=== PATIENT | female | born 1975 | race Hispanic/Latino ===

== ENCOUNTER → 2019-08-06 | Outpatient (CLI) | payer MEDICAID | END | disposition home or self-care (01) | LOC: SLP 20:20 | PROVIDERS: ATTEND Family Medicine | DX: G47.30 Sleep apnea, unspecified (principal); G47.10 Hypersomnia, unspecified; R06.00 Dyspnea, unspecified | CPT/HCPCS: 95810 ==

== ENCOUNTER → 2019-08-22 | Outpatient (CLI) | payer MEDICAID | END | disposition home or self-care (01) | LOC: SLP 20:44 | PROVIDERS: ATTEND Family Medicine | DX: G47.33 Obstructive sleep apnea (adult) (pediatric) (principal); G47.34 Idiopathic sleep related nonobstructive alveolar hypoventilation; R06.83 Snoring | CPT/HCPCS: 95811 ==

== ENCOUNTER 2020-04-16 19:44 | Inpatient (IN) | payer MEDICAID ==
[~2020-04-16] VITALS: Ht 147.3 cm; Wt 77.7 kg
[2020-04-16 21:01] LABS: BASOPHILS % (AUTO) 0.1 % (0.0-5.0); EOSINOPHILS % (AUTO) 0.7 % (0.0-8.0); HEMATOCRIT 41.3 % (36-48); LYMPHOCYTES % (AUTO) 10.8 % (21.0-51.0); MEAN CORPUSCULAR HGB CONC 31.7 g/dL (32.0-36.0); MEAN CORPUSCULAR VOLUME 85.2 fL (79-99); PLATELET COUNT (AUTO) 168 K/uL (130-400); RED BLOOD CELL COUNT(AUTO) 4.85 MIL/uL (4.00-5.50); RED CELL DISTRIBUTION WIDTH 13.5 % (11.0-15.5); WHITE BLOOD COUNT (AUTO) 6.7 K/uL (4.8-10.8)
[2020-04-16 21:08] LABS: INR 1.2 (0.85-1.15); PARTIAL THROMBOPLASTIN TIME 29.1 SEC (26.3-35.5); PROTHROMBIN TIME 12.9 SEC (9.6-11.6)
[2020-04-16] MEDS ORDERED: ZOSYN 3.375GM+NS 50ML 50 ML IV ONE (21:16)
[2020-04-16 23:03] LABS: ALANINE AMINOTRANSFERASE 23 U/L (12-78); ALBUMIN 2.6 g/dL (3.5-5.0); ASPARTATE AMINOTRANSFERASE 30 U/L (10-37); BILIRUBIN,TOTAL 0.5 mg/dL (0.2-1.0); CARBON DIOXIDE 20 mmol/L (21-32); CHLORIDE 107 mmol/L (101-111); CREATINE KINASE, TOTAL 22 U/L (21-232); CREATININE 2.4 mg/dL (0.5-1.5); GLOMERULAR FILTR. RATE CALC 23 mL/min (>60); GLUCOSE,RANDOM 100 mg/dL (70-105); MYOGLOBIN 112 ng/mL (10-92); POTASSIUM 4.4 mmol/L (3.5-5.1); SODIUM SERUM 143 mmol/L (136-145); TOTAL PROTEIN, SERUM 7.1 g/dL (6.0-8.3); TROPONIN I < 0.04 ng/mL (0.00-0.06); UREA NITROGEN, BLOOD 51 mg/dL (7-18)
[2020-04-16] MEDS ORDERED: LACTULOSE 20 GM/30 ML UDCUP PO PRN (23:15)
[2020-04-16] MEDS ORDERED: ACETAMINOPHEN 325 MG TAB PO PRN ×2 (23:15)
[2020-04-16] MEDS ORDERED: ERGOCALCIFEROL (VITAMIN D2) 50,000 UNIT CAPSULE PO ONE (23:15)
[2020-04-16] MEDS: ALBUTEROL INHALER 90MCG/INH IH SCH (23:30)
[2020-04-17] VITALS: BP 102/77
[2020-04-17] MEDS ORDERED: ALBUTEROL INHALER 90MCG/INH IH ONE (00:53)
[2020-04-17] MEDS ORDERED: ENOXAPARIN SODIUM 40 MG/0.4 ML SYRINGE SQ ONE ×2 (00:54→09:41)
[2020-04-17] MEDS ORDERED: METHYLPREDNISOLONE SOD SUCC 125MG/2ML VIAL ONE (00:55)
[2020-04-17] MEDS ORDERED: FAMOTIDINE/PF 20 MG/2 ML VIAL IV ONE ×3 (00:57→21:08)
[2020-04-17 01:43] LABS: APPEARANCE,URINE Clear (CLEAR); BILIRUBIN,URINE Negative (NEGATIVE); COLOR,URINE Yellow (YELLOW); GLUCOSE, URINE (UA) Negative (NEGATIVE); KETONES,URINE Trace mg/dL (NEGATIVE); LEUKOCYTE ESTERASE ,URINE Negative (NEGATIVE); NITRATE,URINE Negative (NEGATIVE); OCCULT BLOOD,URINE Large (NEGATIVE); PROTEIN,URINE POS 2+ mg/dL (NEGATIVE)
[2020-04-17 02:14] LABS: BACTERIA,URINE None Seen /HPF (None Seen); MUCUS,URINE Rare LPF (None Seen); SQUAMOUS EPITHELIAL CELL,UR Few /HPF (0-2); WBC,URINE None Seen /HPF (0-1)
[2020-04-17 04:00] VITALS: BP 103/67
[2020-04-17] MEDS: ALBUTEROL INHALER 90MCG/INH IH SCH ×2 (05:09→07:30)
[2020-04-17] MEDS ORDERED: ZOSYN 3.375GM+NS 50ML 50 ML IV ONE ×3 (05:10→21:07)
[2020-04-17] MEDS: ZOSYN 3.375GM+NS 50ML 50 ML IV SCH ×3 (05:11→21:08)
[2020-04-17 06:17] LABS: ABG HCO3 18.7 mmol/L (21.0-28.0); ABG OXYGEN SATURATION 98.8 % (95.0-99.0); ABG PCO2 32 mmHg (32-45)
[2020-04-17] MEDS: FAMOTIDINE/PF 20 MG/2 ML VIAL IV SCH ×2 (09:00→21:09)
[2020-04-17] MEDS ORDERED: ENOXAPARIN SODIUM 40 MG/0.4 ML SYRINGE SQ SCH (09:00)
[2020-04-17] MEDS: METHYLPREDNISOLONE SOD SUCC 40MG/ML 1ML IVP SCH ×3 (09:00→21:09)
[2020-04-17] MEDS: ZINC SULFATE 220 CAPSULE PO SCH (09:00)
[2020-04-17] MEDS: ASCORBIC ACID 500 MG TAB PO SCH (09:00)
[2020-04-17] MEDS ORDERED: METHYLPREDNISOLONE SOD SUCC 40MG/ML 1ML ONE ×2 (09:40→21:07)
[2020-04-17] MEDS ORDERED: ASCORBIC ACID 500 MG TAB ONE (09:41)
[2020-04-17] MEDS ORDERED: ZINC SULFATE 220 CAPSULE ONE (09:41)
[2020-04-17] MEDS ORDERED: FUROSEMIDE 10 MG/ML 4ML VIAL IV SCH (09:45)
[2020-04-17 11:05] LABS: CRP QUANTITATIVE 384.9 mg/L (0.00-9.0)
[2020-04-17 13:39] LABS: PROTEIN,URINE RANDOM 135.9 mg/dL (0-11.9)
[2020-04-17] MEDS ORDERED: FUROSEMIDE 10 MG/ML 4ML VIAL ONE (15:27)
[2020-04-17] MEDS ORDERED: ERGOCALCIFEROL (VITAMIN D2) 50,000 UNIT CAPSULE ONE (18:09)
[2020-04-17 20:00] VITALS: BP 99/55
[2020-04-18] VITALS: BP 98/55
[2020-04-18 04:00] VITALS: BP 98/85
[2020-04-18] MEDS ORDERED: ZOSYN 3.375GM+NS 50ML 50 ML IV ONE ×3 (04:56→20:57)
[2020-04-18] MEDS: ZOSYN 3.375GM+NS 50ML 50 ML IV SCH ×2 (05:50→21:00)
[2020-04-18 06:25] LABS: CRP QUANTITATIVE 285.2 mg/L (0.00-9.0)
[2020-04-18] MEDS ORDERED: ENOXAPARIN SODIUM 80 MG/0.8 ML SQ ONE (08:30)
[2020-04-18] MEDS ORDERED: ASCORBIC ACID 500 MG TAB ONE (08:31)
[2020-04-18] MEDS ORDERED: ZINC SULFATE 220 CAPSULE ONE (08:31)
[2020-04-18] MEDS ORDERED: FAMOTIDINE/PF 20 MG/2 ML VIAL IV ONE ×2 (08:32→20:58)
[2020-04-18] MEDS: ALBUTEROL INHALER 90MCG/INH IH SCH ×3 (09:09→23:30)
[2020-04-18] MEDS: ASCORBIC ACID 500 MG TAB PO SCH (09:10)
[2020-04-18] MEDS: ZINC SULFATE 220 CAPSULE PO SCH (09:11)
[2020-04-18] MEDS: FAMOTIDINE/PF 20 MG/2 ML VIAL IV SCH ×2 (09:11→21:00)
[2020-04-18] MEDS: ENOXAPARIN SODIUM 80 MG/0.8 ML SQ SCH (09:11)
[2020-04-18] MEDS ORDERED: METHYLPREDNISOLONE SOD SUCC 125MG/2ML VIAL ONE (13:03)
[2020-04-18] MEDS ORDERED: GUAIFENESIN-CODEINE 5 ML SYRUP ONE (15:00)
[2020-04-18 15:18] LABS: BASOPHILS % (AUTO) 0.1 % (0.0-5.0); HEMATOCRIT 40.1 % (36-48); LYMPHOCYTES % (AUTO) 6.4 % (21.0-51.0); MEAN CORPUSCULAR HGB CONC 30.9 g/dL (32.0-36.0); MEAN CORPUSCULAR VOLUME 87.2 fL (79-99); MONOCYTES % (AUTO) 2.8 % (3.0-13.0); NEUTROPHILS % (AUTO) 90.1 % (40.0-77.0); PLATELET COUNT (AUTO) 183 K/uL (130-400); RED CELL DISTRIBUTION WIDTH 13.5 % (11.0-15.5); WHITE BLOOD COUNT (AUTO) 8.6 K/uL (4.8-10.8)
[2020-04-18 15:31] LABS: ALBUMIN 2.5 g/dL (3.5-5.0); BILIRUBIN,TOTAL 0.3 mg/dL (0.2-1.0); CREATININE 2.7 mg/dL (0.5-1.5); TOTAL PROTEIN, SERUM 7.8 g/dL (6.0-8.3)
--- NOTE | 2020-04-18 18:30 | NUR ---
cm note call made to listed pt number no answer. call made to listed contact # and spoke to luigi castro, friend, states pt resides at home with 2 sons, she has her own room pt is independent with adls and ambulation. no provider. has a cane but does not need to use. friend states she provides transport as needed to md. no dc needs. Addendum: 04/18/20 at 1835 by ARLENE WILLIAM CM Amended: Links added.
[2020-04-18] MEDS ORDERED: PHARMACY COMMUNICATION MISC SCH (19:15)
[2020-04-18 20:10] VITALS: BP 89/59
[2020-04-18] MEDS ORDERED: MIDODRINE HCL 5 MG TABLET ONE (20:57)
[2020-04-18] MEDS ORDERED: METHYLPREDNISOLONE SOD SUCC 40MG/ML 1ML ONE (20:57)
[2020-04-18] MEDS: METHYLPREDNISOLONE SOD SUCC 40MG/ML 1ML IVP SCH (21:00)
[2020-04-18] MEDS: MIDODRINE HCL 5 MG TABLET PO SCH (21:00)
[2020-04-19 00:50] VITALS: BP 102/62
[2020-04-19] MEDS: LINEZOLID 600 MG/ISO-OSM 300 ML IV SCH ×2 (02:30→14:16)
[2020-04-19 05:00] VITALS: BP 88/52
[2020-04-19] MEDS ORDERED: ZOSYN 3.375GM+NS 50ML 50 ML IV ONE ×3 (05:09→20:30)
[2020-04-19 05:13] LABS: HEMATOCRIT 38.3 % (36-48); MEAN CORPUSCULAR HEMOGLOBIN 26.4 pg (27.0-33.0); MEAN CORPUSCULAR HGB CONC 31.6 g/dL (32.0-36.0); MEAN CORPUSCULAR VOLUME 83.4 fL (79-99); PLATELET COUNT (AUTO) 238 K/uL (130-400); RED BLOOD CELL COUNT(AUTO) 4.59 MIL/uL (4.00-5.50); RED CELL DISTRIBUTION WIDTH 13.2 % (11.0-15.5); WHITE BLOOD COUNT (AUTO) 11.7 K/uL (4.8-10.8)
[2020-04-19] MEDS: ZOSYN 3.375GM+NS 50ML 50 ML IV SCH ×3 (05:13→22:31)
[2020-04-19] MEDS: ALBUTEROL INHALER 90MCG/INH IH SCH ×6 (05:13→23:30)
[2020-04-19 05:29] LABS: BAND NEUTROPHILS % (MANUAL) 3 % (0-2); LYMPHOCYTES % (MANUAL) 7 % (22-44); MAN.DIFF COMMENT-IMPRESSION MANUAL DIFFERENTIAL; MONOCYTES % (MANUAL) 2 % (2-9); PLATELET MORPHOLOGY COMMENT ADEQUATE; SEGMENTED NEUTROPHILS % 88 % (40-70)
[2020-04-19 05:35] LABS: CREATININE 2.7 mg/dL (0.5-1.5); CRP QUANTITATIVE 144.3 mg/L (0.00-9.0); PHOSPHORUS 5.4 mg/dL (2.5-4.9); POTASSIUM 3.6 mmol/L (3.5-5.1)
[2020-04-19] MEDS: PHARMACY COMMUNICATION** REMDESIVIR ORDER MISC SCH ×3 (06:45→22:45)
[2020-04-19] MEDS ORDERED: ENOXAPARIN SODIUM 80 MG/0.8 ML SQ ONE (09:32)
[2020-04-19] MEDS ORDERED: METHYLPREDNISOLONE SOD SUCC 40MG/ML 1ML ONE (09:32)
[2020-04-19] MEDS ORDERED: ASCORBIC ACID 500 MG TAB ONE (09:33)
[2020-04-19] MEDS ORDERED: ZINC SULFATE 220 CAPSULE ONE (09:33)
[2020-04-19] MEDS ORDERED: MIDODRINE HCL 5 MG TABLET ONE ×4 (09:33→20:32)
[2020-04-19] MEDS ORDERED: FAMOTIDINE/PF 20 MG/2 ML VIAL IV ONE ×2 (09:35→20:30)
[2020-04-19] MEDS: ENOXAPARIN SODIUM 80 MG/0.8 ML SQ SCH (09:37)
[2020-04-19] MEDS: ASCORBIC ACID 500 MG TAB PO SCH (09:37)
[2020-04-19] MEDS: FAMOTIDINE/PF 20 MG/2 ML VIAL IV SCH ×2 (09:37→22:32)
[2020-04-19] MEDS: METHYLPREDNISOLONE SOD SUCC 40MG/ML 1ML IVP SCH ×2 (09:37→22:32)
[2020-04-19] MEDS: MIDODRINE HCL 5 MG TABLET PO SCH ×3 (09:39→22:33)
[2020-04-19] MEDS: ZINC SULFATE 220 CAPSULE PO SCH (09:40)
[2020-04-19] MEDS ORDERED: ACETAMINOPHEN 325 MG TAB ONE (14:15)
[2020-04-19] MEDS ORDERED: BENZONATATE 100 MG CAPSULE PO ONE (14:31)
[2020-04-19] MEDS ORDERED: BENZONATATE 100 MG CAPSULE PO PRN (14:45)
[2020-04-19] MEDS ORDERED: REMDESIVIR (INVESTIGATIONAL) 100 MG in SODIUM CHLORIDE 0.9% 250 ML IV SCH (16:45)
--- NOTE | 2020-04-19 18:26 | NUR ---
pt alert, all medications scheduled was given, pt showed no signs and symptoms of distress, ABT with no adverse reactions, pt is sat 89-91 on RA, pt was placed back on 2L NC, will continue to monitor pt
[2020-04-19 20:01] VITALS: BP 119/64
[2020-04-19] MEDS ORDERED: METHYLPREDNISOLONE SOD SUCC 125MG/2ML VIAL ONE (20:31)
[2020-04-19] MEDS ORDERED: LACTATED RINGERS 1000ML 1,000 ML IV SCH (22:15)
[2020-04-20 00:45] VITALS: BP 127/86
--- NOTE | 2020-04-20 02:20 | NUR ---
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
[2020-04-20] MEDS: LINEZOLID 600 MG/ISO-OSM 300 ML IV SCH ×2 (02:53→14:30)
[2020-04-20] MEDS: ALBUTEROL INHALER 90MCG/INH IH SCH ×6 (03:30→20:42)
[2020-04-20 04:12] VITALS: BP 109/55
[2020-04-20] MEDS ORDERED: ZOSYN 3.375GM+NS 50ML 50 ML IV ONE ×2 (04:20→13:30)
[2020-04-20] MEDS: ZOSYN 3.375GM+NS 50ML 50 ML IV SCH ×3 (04:34→20:41)
[2020-04-20] MEDS: PHARMACY COMMUNICATION** REMDESIVIR ORDER MISC SCH ×3 (06:11→20:45)
[2020-04-20 06:20] LABS: CREATINE KINASE, TOTAL 22 U/L (21-232); MYOGLOBIN 116 ng/mL (10-92); TROPONIN I < 0.04 ng/mL (0.00-0.06)
[2020-04-20] MEDS: MIDODRINE HCL 5 MG TABLET PO SCH ×3 (09:00→20:42)
[2020-04-20] MEDS: METHYLPREDNISOLONE SOD SUCC 40MG/ML 1ML IVP SCH ×2 (09:00→20:41)
[2020-04-20] MEDS: ENOXAPARIN SODIUM 80 MG/0.8 ML SQ SCH (09:00)
[2020-04-20] MEDS ORDERED: ASCORBIC ACID 500 MG TAB ONE (10:25)
[2020-04-20] MEDS ORDERED: ENOXAPARIN SODIUM 80 MG/0.8 ML SQ ONE (10:25)
[2020-04-20] MEDS ORDERED: ZINC SULFATE 220 CAPSULE ONE (10:25)
[2020-04-20] MEDS ORDERED: METHYLPREDNISOLONE SOD SUCC 40MG/ML 1ML ONE (10:25)
[2020-04-20] MEDS ORDERED: FAMOTIDINE/PF 20 MG/2 ML VIAL IV ONE (10:26)
[2020-04-20] MEDS ORDERED: MIDODRINE HCL 5 MG TABLET ONE ×2 (10:26→13:31)
[2020-04-20] MEDS ORDERED: ONDANSETRON HCL 4 MG/2 ML VIAL ONE (11:52)
--- NOTE | 2020-04-20 14:43 | NUR ---
PHONE CALL Attempted to call friend, Holli, to update on pt's status, no answer x3.
[2020-04-20 15:57] LABS: BASOPHILS % (AUTO) 0.1 % (0.0-5.0); HEMATOCRIT 38.4 % (36-48); LYMPHOCYTES % (AUTO) 4.4 % (21.0-51.0); MEAN CORPUSCULAR HGB CONC 31.8 g/dL (32.0-36.0); MONOCYTES % (AUTO) 3.4 % (3.0-13.0); NEUTROPHILS % (AUTO) 91.5 % (40.0-77.0); PLATELET COUNT (AUTO) 224 K/uL (130-400); RED BLOOD CELL COUNT(AUTO) 4.52 MIL/uL (4.00-5.50); RED CELL DISTRIBUTION WIDTH 13.2 % (11.0-15.5); WHITE BLOOD COUNT (AUTO) 8.6 K/uL (4.8-10.8)
[2020-04-20 16:04] LABS: CREATININE 1.9 mg/dL (0.5-1.5); POTASSIUM 3.7 mmol/L (3.5-5.1)
[2020-04-20 16:08] LABS: ALBUMIN 2.5 g/dL (3.5-5.0); BILIRUBIN,TOTAL 0.4 mg/dL (0.2-1.0); CRP QUANTITATIVE 58.7 mg/L (0.00-9.0)
[2020-04-20] MEDS: FAMOTIDINE/PF 20 MG/2 ML VIAL IV SCH ×2 (20:00→20:41)
[2020-04-20] MEDS: ASCORBIC ACID 500 MG TAB PO SCH (20:00)
[2020-04-20] MEDS: ZINC SULFATE 220 CAPSULE PO SCH (20:00)
[2020-04-20] MEDS ORDERED: SODIUM CHLORIDE 0.9% 500ML 500 ML IV ONE (20:29)
[2020-04-20 20:31] VITALS: BP 101/59
[2020-04-21] VITALS: BP 108/64
[2020-04-21] MEDS: LINEZOLID 600 MG/ISO-OSM 300 ML IV SCH ×2 (03:34→15:36)
[2020-04-21] MEDS: ALBUTEROL INHALER 90MCG/INH IH SCH ×6 (03:34→23:17)
[2020-04-21] MEDS: PHARMACY COMMUNICATION** REMDESIVIR ORDER MISC SCH ×3 (03:35→22:12)
[2020-04-21 04:17] VITALS: BP 123/61
[2020-04-21 06:01] LABS: LACTATE DEHYDROGENASE 227 U/L (81-234)
[2020-04-21 08:48] VITALS: BP 115/63
[2020-04-21] MEDS: METHYLPREDNISOLONE SOD SUCC 40MG/ML 1ML IVP SCH ×2 (09:53→20:10)
[2020-04-21] MEDS: ZINC SULFATE 220 CAPSULE PO SCH (09:54)
[2020-04-21] MEDS: MIDODRINE HCL 5 MG TABLET PO SCH ×3 (09:54→20:10)
[2020-04-21] MEDS: ENOXAPARIN SODIUM 80 MG/0.8 ML SQ SCH (09:55)
[2020-04-21] MEDS: FAMOTIDINE/PF 20 MG/2 ML VIAL IV SCH ×2 (09:55→20:10)
[2020-04-21] MEDS: ASCORBIC ACID 500 MG TAB PO SCH (09:55)
[2020-04-21] MEDS: ZOSYN 3.375GM+NS 50ML 50 ML IV SCH ×2 (11:55→20:10)
[2020-04-21 12:19] VITALS: BP 108/63
--- NOTE | 2020-04-21 13:07 | NUR ---
DR. Dorothea AGEE AT NURSE'S STATION UPDATED ON PT.'S STATUS. QUESTIONS ANSWERED. NO NEW ORDERS RECEIVED.
--- NOTE | 2020-04-21 14:40 | NUR ---
SPOKE WITH DR. MOSES VIA TELEMEDICINE RE:PT. STATUS AND QUESTIONS ANSWERED; VERBALIZED UNDERSTANDING AND STATES WILL PLACE ORDERS.
[2020-04-21] MEDS ORDERED: SODIUM CHLORIDE 0.9% 1000ML 1,000 ML IV SCH (14:58)
--- NOTE | 2020-04-21 15:15 | NUR ---
PHONE CALL Patient's friend, Holli Randhawa, was updated and given opportunity to ask questions.
[2020-04-21 16:29] VITALS: BP 154/75
[2020-04-21 19:30] VITALS: BP 127/56
[2020-04-22] VITALS: BP 132/59
[2020-04-22] MEDS: LINEZOLID 600 MG/ISO-OSM 300 ML IV SCH ×2 (01:31→15:02)
[2020-04-22] MEDS: ALBUTEROL INHALER 90MCG/INH IH SCH ×5 (03:27→20:39)
[2020-04-22] MEDS: PHARMACY COMMUNICATION** REMDESIVIR ORDER MISC SCH ×3 (03:27→22:45)
[2020-04-22 04:00] VITALS: BP 133/63
[2020-04-22] MEDS: ZOSYN 3.375GM+NS 50ML 50 ML IV SCH ×3 (04:53→20:38)
[2020-04-22 06:15] LABS: BASOPHILS % (AUTO) 0.1 % (0.0-5.0); HEMATOCRIT 37.9 % (36-48); LYMPHOCYTES % (AUTO) 5.1 % (21.0-51.0); MEAN CORPUSCULAR HEMOGLOBIN 26.5 pg (27.0-33.0); MEAN CORPUSCULAR HGB CONC 30.6 g/dL (32.0-36.0); MEAN CORPUSCULAR VOLUME 86.5 fL (79-99); MONOCYTES % (AUTO) 4.7 % (3.0-13.0); NEUTROPHILS % (AUTO) 89.5 % (40.0-77.0); PLATELET COUNT (AUTO) 251 K/uL (130-400); RED BLOOD CELL COUNT(AUTO) 4.38 MIL/uL (4.00-5.50); RED CELL DISTRIBUTION WIDTH 13.2 % (11.0-15.5); WHITE BLOOD COUNT (AUTO) 8.2 K/uL (4.8-10.8)
[2020-04-22 06:41] LABS: ALANINE AMINOTRANSFERASE 19 U/L (12-78); ALBUMIN 2.4 g/dL (3.5-5.0); ASPARTATE AMINOTRANSFERASE 21 U/L (10-37); BILIRUBIN,TOTAL 0.4 mg/dL (0.2-1.0); CARBON DIOXIDE 22 mmol/L (21-32); CHLORIDE 109 mmol/L (101-111); CREATININE 1.6 mg/dL (0.5-1.5); GLOMERULAR FILTR. RATE CALC 37 mL/min (>60); GLUCOSE,RANDOM 161 mg/dL (70-105); LACTATE DEHYDROGENASE 443 U/L (81-234); POTASSIUM 4.4 mmol/L (3.5-5.1); SODIUM SERUM 141 mmol/L (136-145); TOTAL PROTEIN, SERUM 6.6 g/dL (6.0-8.3); UREA NITROGEN, BLOOD 45 mg/dL (7-18)
[2020-04-22 08:15] VITALS: BP 126/69
[2020-04-22] MEDS: MIDODRINE HCL 5 MG TABLET PO SCH ×3 (09:00→20:42)
[2020-04-22] MEDS: ZINC SULFATE 220 CAPSULE PO SCH (09:25)
[2020-04-22] MEDS: METHYLPREDNISOLONE SOD SUCC 40MG/ML 1ML IVP SCH ×2 (09:25→20:38)
[2020-04-22] MEDS: ENOXAPARIN SODIUM 80 MG/0.8 ML SQ SCH (09:26)
[2020-04-22] MEDS: FAMOTIDINE/PF 20 MG/2 ML VIAL IV SCH ×2 (09:26→20:38)
[2020-04-22] MEDS: ASCORBIC ACID 500 MG TAB PO SCH (09:26)
--- NOTE | 2020-04-22 11:35 | NUR ---
UPDATED DR. AGEE ON PT. STATUS AND PULSE OXIMETRY ON 2L/NC. VERBALIZED UNDERSTANDING. NO NEW ORDERS RECEIVED AT THIS TIME.
[2020-04-22 12:23] VITALS: BP 118/63
[2020-04-22] MEDS: ONDANSETRON HCL 4 MG/2 ML VIAL IV PRN ×2 (12:38→20:57)
--- NOTE | 2020-04-22 13:03 | NUR ---
PHONE CALL Patient's sister Charu Hector was updated and given opportunity to ask questions.
--- NOTE | 2020-04-22 16:28 | NUR ---
SPOKE WITH DR. MOSES VIA TELEMEDICINE. UPDATED ON STATUS AND QUESTIONS ANSWERED.
[2020-04-22 16:32] VITALS: BP 104/61
[2020-04-22 19:55] VITALS: BP 105/51
[2020-04-23] VITALS (7 sets, daily range): BP systolic 94–113; BP diastolic 55–67
[2020-04-23] MEDS: ALBUTEROL INHALER 90MCG/INH IH SCH ×7 (01:49→21:12)
[2020-04-23] MEDS: LINEZOLID 600 MG/ISO-OSM 300 ML IV SCH ×2 (01:53→14:20)
[2020-04-23] MEDS: ZOSYN 3.375GM+NS 50ML 50 ML IV SCH ×3 (04:27→20:14)
[2020-04-23 05:01] LABS: HEMATOCRIT 36.7 % (36-48); LYMPHOCYTES % (AUTO) 5.8 % (21.0-51.0); MEAN CORPUSCULAR HEMOGLOBIN 26.8 pg (27.0-33.0); MEAN CORPUSCULAR HGB CONC 30.8 g/dL (32.0-36.0); MEAN CORPUSCULAR VOLUME 87.2 fL (79-99); MONOCYTES % (AUTO) 4.8 % (3.0-13.0); NEUTROPHILS % (AUTO) 88.7 % (40.0-77.0); PLATELET COUNT (AUTO) 213 K/uL (130-400); RED BLOOD CELL COUNT(AUTO) 4.21 MIL/uL (4.00-5.50); RED CELL DISTRIBUTION WIDTH 13.1 % (11.0-15.5); WHITE BLOOD COUNT (AUTO) 6.9 K/uL (4.8-10.8)
[2020-04-23 05:48] LABS: ALANINE AMINOTRANSFERASE 22 U/L (12-78); ALBUMIN 2.5 g/dL (3.5-5.0); ASPARTATE AMINOTRANSFERASE 15 U/L (10-37); BILIRUBIN,TOTAL 0.4 mg/dL (0.2-1.0); CARBON DIOXIDE 23 mmol/L (21-32); CHLORIDE 108 mmol/L (101-111); CREATININE 1.8 mg/dL (0.5-1.5); GLOMERULAR FILTR. RATE CALC 32 mL/min (>60); GLUCOSE,RANDOM 193 mg/dL (70-105); LACTATE DEHYDROGENASE 190 U/L (81-234); POTASSIUM 4.3 mmol/L (3.5-5.1); SODIUM SERUM 139 mmol/L (136-145); TOTAL PROTEIN, SERUM 6.3 g/dL (6.0-8.3); UREA NITROGEN, BLOOD 39 mg/dL (7-18)
[2020-04-23] MEDS: PHARMACY COMMUNICATION** REMDESIVIR ORDER MISC SCH ×3 (06:43→22:45)
[2020-04-23] MEDS: FAMOTIDINE/PF 20 MG/2 ML VIAL IV SCH ×2 (08:17→20:14)
[2020-04-23] MEDS: METHYLPREDNISOLONE SOD SUCC 40MG/ML 1ML IVP SCH ×2 (08:18→20:14)
[2020-04-23] MEDS: MIDODRINE HCL 5 MG TABLET PO SCH ×3 (08:19→20:17)
[2020-04-23] MEDS: ASCORBIC ACID 500 MG TAB PO SCH (08:19)
[2020-04-23] MEDS: ZINC SULFATE 220 CAPSULE PO SCH (08:19)
[2020-04-23] MEDS: ENOXAPARIN SODIUM 80 MG/0.8 ML SQ SCH (08:20)
--- NOTE | 2020-04-23 11:13 | NUR ---
[facility] Multiple calls made to DME agencies. [facility] currently able to fill O2 scripts for [facility] patients. Faxed patient's demographic sheet and COVID testing for needed forms to be signed for O2 referral. Nurse aware that O2 testing is needed. CM to continue to follow. CD Addendum: 04/23/20 at 1114 by ROBE ANDERSON CM Amended: Links added.
--- NOTE | 2020-04-23 12:06 | NUR ---
DR. MARY VALERIO. UPDATED ON PT. STATUS AND QUESTIONS ANSWERED. ORDERS RECEIVED.
--- NOTE | 2020-04-23 12:20 | NUR ---
RDSCREEN - LOS X 7 Pt admitted with COVID-19 infection, ARF. Renal non Dialysis diet order in place. Pt tolerating with no report of GI distress, PO intake at 75%. Pt LBM 04/21. CKD. Elevated BG. Zinc, Vitamin C supplementation in place. Symptoms improved per MD note. Pending COVID testing. Recommend 75gm CCD diet modification Recommend 60mL ProMod QD RD to continue to monitor. Please notify RD as additional nutrition concerns arise. Thank you.
--- NOTE | 2020-04-23 17:20 | NUR ---
PT. SITTING UP IN BED EATING DINNER. DENIES ANY C/O AT THIS TIME. CALL LIGHT WITHIN REACH.
[2020-04-24] MEDS: ALBUTEROL INHALER 90MCG/INH IH SCH ×5 (01:23→20:00)
[2020-04-24] MEDS: LINEZOLID 600 MG/ISO-OSM 300 ML IV SCH ×2 (01:42→13:29)
[2020-04-24 03:00] VITALS: BP 116/57
[2020-04-24 04:32] LABS: HEMATOCRIT 35.7 % (36-48); LYMPHOCYTES % (AUTO) 6.5 % (21.0-51.0); MEAN CORPUSCULAR HEMOGLOBIN 26.8 pg (27.0-33.0); MEAN CORPUSCULAR HGB CONC 31.4 g/dL (32.0-36.0); MEAN CORPUSCULAR VOLUME 85.4 fL (79-99); MONOCYTES % (AUTO) 4.1 % (3.0-13.0); NEUTROPHILS % (AUTO) 88.9 % (40.0-77.0); PLATELET COUNT (AUTO) 204 K/uL (130-400); RED BLOOD CELL COUNT(AUTO) 4.18 MIL/uL (4.00-5.50); RED CELL DISTRIBUTION WIDTH 13.1 % (11.0-15.5); WHITE BLOOD COUNT (AUTO) 8.4 K/uL (4.8-10.8)
[2020-04-24 04:49] LABS: CRP QUANTITATIVE 12.5 mg/L (0.00-9.0)
[2020-04-24] MEDS: PHARMACY COMMUNICATION** REMDESIVIR ORDER MISC SCH ×3 (06:45→22:45)
[2020-04-24] MEDS: FAMOTIDINE/PF 20 MG/2 ML VIAL IV SCH ×2 (10:05→21:21)
[2020-04-24] MEDS: ASCORBIC ACID 500 MG TAB PO SCH (10:05)
[2020-04-24] MEDS: METHYLPREDNISOLONE SOD SUCC 40MG/ML 1ML IVP SCH (10:05)
[2020-04-24] MEDS: ZINC SULFATE 220 CAPSULE PO SCH (10:05)
[2020-04-24] MEDS: ENOXAPARIN SODIUM 80 MG/0.8 ML SQ SCH (10:06)
[2020-04-24] MEDS: ZOSYN 3.375GM+NS 50ML 50 ML IV SCH ×2 (10:07→21:21)
[2020-04-24] MEDS: MIDODRINE HCL 5 MG TABLET PO SCH ×2 (10:11→14:00)
--- NOTE | 2020-04-24 11:45 | NUR ---
PT BEING TRANSFERED TO THE 4TH FLOOR ROOM 429; I SPOKE IN PERSON TO SUSANNE DOAN AND GAVE HER REPORT; THE TRANSFERING ROOM STILL NEEDS TO BE CLEANED AND WILL MOVE PT AFTER IT IS CLEANED; PT IS TEMPORARILY WAITING IN ROOM 211 TILL ROOM IS READY. I HAVE INFORMED PT OF THE TRANSFER; I HAVE ALSO SPOKEN TO CM ABOUT CHECKING WITH HER FAMILY TO MAKE SURE THEY CAN TAKE CARE OF HER HOME DUE TO HER WEAKENED STATE WITH POOR AMBULATION ABILITY;
[2020-04-24] MEDS: ONDANSETRON HCL 4 MG/2 ML VIAL IV PRN (13:28)
[2020-04-24 14:16] VITALS: BP 117/64
[2020-04-24 15:50] VITALS: BP 111/66
--- NOTE | 2020-04-24 18:21 | NUR ---
Patient received from Cecilia on 2nd floor. VSS and no complaints of pain or discomfort. Will continue to monitor for any changes
--- NOTE | 2020-04-24 20:00 | NUR ---
CLARIFICATION ORDER CALLED TO GET CLARIFICATION FOR REMDESIVIR ORDER. WAS UNABLE TO SPEAK TO ANYONE AT THIS TIME
[2020-04-24 20:33] VITALS: BP 94/52
[2020-04-24] MEDS: APIXABAN 2.5 MG TABLET PO SCH (21:22)
[2020-04-25] VITALS (8 sets, daily range): BP systolic 76–125; BP diastolic 45–64
--- NOTE | 2020-04-25 01:14 | NUR ---
ROUNDS PT RESTING WITH EYES CLOSED IN BED. OBSERVED RISE AND FALL OF CHEST. EVEN, UNLABORED RESPIRATIONS. LACEWORKER READING SB 59. NO S/S OF DISTRESS. BED LOCKED IN LOWEST POSITION, BED RAILS UP X2, CALL LIGHT WITHIN REACH ON BED.
[2020-04-25] MEDS: LINEZOLID 600 MG/ISO-OSM 300 ML IV SCH (02:02)
[2020-04-25] MEDS: ALBUTEROL INHALER 90MCG/INH IH SCH ×6 (04:00→20:00)
[2020-04-25 06:44] LABS: EOSINOPHILS % (AUTO) 1.1 % (0.0-8.0); HEMATOCRIT 36.7 % (36-48); MEAN CORPUSCULAR HGB CONC 31.9 g/dL (32.0-36.0); MEAN CORPUSCULAR VOLUME 84.8 fL (79-99); MONOCYTES % (AUTO) 7.2 % (3.0-13.0); PLATELET COUNT (AUTO) 122 K/uL (130-400); RED BLOOD CELL COUNT(AUTO) 4.33 MIL/uL (4.00-5.50); WHITE BLOOD COUNT (AUTO) 7.5 K/uL (4.8-10.8)
[2020-04-25] MEDS: PHARMACY COMMUNICATION** REMDESIVIR ORDER MISC SCH ×3 (06:45→22:45)
[2020-04-25] MEDS: ASCORBIC ACID 500 MG TAB PO SCH (07:28)
[2020-04-25] MEDS: ZINC SULFATE 220 CAPSULE PO SCH (07:28)
[2020-04-25] MEDS: FAMOTIDINE/PF 20 MG/2 ML VIAL IV SCH ×2 (07:28→20:10)
[2020-04-25] MEDS: APIXABAN 2.5 MG TABLET PO SCH ×2 (07:28→20:10)
[2020-04-25] MEDS: DEXAMETHASONE 4 MG TAB PO SCH (07:29)
[2020-04-25 07:58] LABS: CRP QUANTITATIVE 9.2 mg/L (0.00-9.0)
--- NOTE | 2020-04-25 08:00 | NUR ---
ASSESSMENT PT IS AAOX3 DENIES CP DENIES SOB DENIES NV WHILE AT REST. RESTING IN BED. AM MEDS GIVEN, CALL LIGHT WITHIN REACH.
[2020-04-25] MEDS ORDERED: MIDODRINE HCL 5 MG TABLET ONE ×2 (10:52)
[2020-04-25] MEDS ORDERED: SODIUM CHLORIDE 0.9% 1000ML 1,000 ML IV SCH (11:00)
--- NOTE | 2020-04-25 11:00 | NUR ---
SBP 70S DR LAMAR VALERIO, SAW PATIENT, ORDERS RECEIVED
[2020-04-25] MEDS: ONDANSETRON HCL 4 MG/2 ML VIAL IV PRN (11:01)
[2020-04-25] MEDS: MIDODRINE HCL 5 MG TABLET PO SCH (20:09)
--- NOTE | 2020-04-25 22:50 | NUR ---
PAIN PT C/O OF 10 OUT OF 0 PAIN TO LOWER BACK THAT RADIATES TO CHEST AREA. 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 BLANCA CALLES SAID SHE WOULD PLACE ORDER IN [facility] FOR PAIN MEDICATION.
--- NOTE | 2020-04-25 22:55 | NUR ---
PAIN INTERVENTIONS STAT EKG, LABS, VS DONE AT THIS TIME D/T CHEST PAIN- FINDINGS REPORTED BACK TO CONNIE. ADMINISTERED TYLENOL FOR PAIN ORDERED BY BLANCA ROSALES. PLACED PT ON LEFT SIDE, SUPPORTED WITH PILLOWS. PLACED WARM BACKS TO BACK. PT REPORTS THAT THE "DOLOR ES MENOS".
[2020-04-25] MEDS ORDERED: NITROGLYCERIN 0.4 MG SL TAB SL ONE (23:00)
[2020-04-26] VITALS: BP 138/68
[2020-04-26] LABS: CREATINE KINASE, TOTAL 13 U/L (21-232); MYOGLOBIN 60 ng/mL (10-92); TROPONIN I < 0.04 ng/mL (0.00-0.06)
--- NOTE | 2020-04-26 01:00 | NUR ---
ROUNDS PT RESTING WITH EYES CLOSED. OBSERVED RISE AND FALL OF CHEST. TELEMETRY READING SB 48. NO DISTRESS NOTED. WILL CONT TO MONITOR
[2020-04-26] MEDS: ONDANSETRON HCL 4 MG/2 ML VIAL IV PRN (02:00)
[2020-04-26 04:00] VITALS: BP 136/56
[2020-04-26] MEDS: ALBUTEROL INHALER 90MCG/INH IH SCH ×6 (04:00→20:00)
[2020-04-26 06:58] LABS: HEMATOCRIT 37.1 % (36-48); MEAN CORPUSCULAR HEMOGLOBIN 26.9 pg (27.0-33.0); MEAN CORPUSCULAR HGB CONC 31.5 g/dL (32.0-36.0); MEAN CORPUSCULAR VOLUME 85.3 fL (79-99); PLATELET COUNT (AUTO) 184 K/uL (130-400); RED BLOOD CELL COUNT(AUTO) 4.35 MIL/uL (4.00-5.50); WHITE BLOOD COUNT (AUTO) 7.2 K/uL (4.8-10.8)
[2020-04-26 07:24] LABS: ALANINE AMINOTRANSFERASE 80 U/L (12-78); ALBUMIN 2.5 g/dL (3.5-5.0); ASPARTATE AMINOTRANSFERASE 29 U/L (10-37); BILIRUBIN,TOTAL 0.5 mg/dL (0.2-1.0); CARBON DIOXIDE 25 mmol/L (21-32); CHLORIDE 106 mmol/L (101-111); CREATINE KINASE, TOTAL 8 U/L (21-232); CREATININE 1.6 mg/dL (0.5-1.5); GLOMERULAR FILTR. RATE CALC 37 mL/min (>60); GLUCOSE,RANDOM 78 mg/dL (70-105); MYOGLOBIN 54 ng/mL (10-92); POTASSIUM 4.1 mmol/L (3.5-5.1); SODIUM SERUM 137 mmol/L (136-145); TROPONIN I < 0.04 ng/mL (0.00-0.06); UREA NITROGEN, BLOOD 36 mg/dL (7-18)
[2020-04-26] MEDS: MIDODRINE HCL 5 MG TABLET PO SCH ×2 (07:38→20:54)
[2020-04-26] MEDS: ZINC SULFATE 220 CAPSULE PO SCH (07:39)
[2020-04-26] MEDS: APIXABAN 2.5 MG TABLET PO SCH ×2 (07:39→20:49)
[2020-04-26] MEDS: ASCORBIC ACID 500 MG TAB PO SCH (07:39)
[2020-04-26] MEDS: DEXAMETHASONE 4 MG TAB PO SCH ×3 (07:39→20:53)
[2020-04-26] MEDS: FAMOTIDINE/PF 20 MG/2 ML VIAL IV SCH ×2 (07:39→20:49)
[2020-04-26 07:55] LABS: BAND NEUTROPHILS % (MANUAL) 1 % (0-2); EOSINOPHILS % (MANUAL) 2 % (1-6); LYMPHOCYTES % (MANUAL) 19 % (22-44); MAN.DIFF COMMENT-IMPRESSION MANUAL DIFFERENTIAL; MONOCYTES % (MANUAL) 6 % (2-9); PLATELET MORPHOLOGY COMMENT ADEQUATE; SEGMENTED NEUTROPHILS % 72 % (40-70)
--- NOTE | 2020-04-26 08:00 | NUR ---
ASSESSMENT PT IS AAOX3 DENIES CP DENIES SOB DENIES NV WHILE AT REST. RESTING IN BED. AM MEDS GIVEN, CALL LIGHT WITHIN REACH. SBP WNL THIS AM.
[2020-04-26] MEDS ORDERED: MIDODRINE HCL 5 MG TABLET PO SCH ×2 (09:00→14:00)
[2020-04-26 09:58] LABS: LACTATE DEHYDROGENASE 194 U/L (81-234)
[2020-04-26 10:27] VITALS: BP 86/51
--- NOTE | 2020-04-26 13:45 | NUR ---
DR LAMAR SMITH
--- NOTE | 2020-04-26 14:32 | NUR ---
DR Anali ORTIZ ROUNDED ORDERED TO INCREASE MIDODRINE TO 10MG TID, ORDER ENTERED.
[2020-04-26 17:59] VITALS: BP 87/51
--- NOTE | 2020-04-26 17:59 | NUR ---
STATUS RESTING IN BED. NO COMPLAINTS AT THIS TIME, BREATHING PATTERN IS EVEN AND UNLABORED, ON O2 AT 2LPM. CALL LIGHT WITHIN REACH.
[2020-04-26] MEDS: HYDROCODONE/ACETAMINOPHEN 5/325 MG TAB PO PRN (20:55)
[2020-04-26 21:57] VITALS: BP 93/56
[2020-04-27] VITALS (7 sets, daily range): BP systolic 92–143; BP diastolic 46–70
[2020-04-27] MEDS: ALBUTEROL INHALER 90MCG/INH IH SCH ×7 (04:00→23:21)
[2020-04-27 07:40] LABS: BASOPHILS % (AUTO) 0.1 % (0.0-5.0); EOSINOPHILS % (AUTO) 0.1 % (0.0-8.0); LYMPHOCYTES % (AUTO) 7.7 % (21.0-51.0); MEAN CORPUSCULAR HGB CONC 31.3 g/dL (32.0-36.0); MEAN CORPUSCULAR VOLUME 86.4 fL (79-99); MONOCYTES % (AUTO) 4.3 % (3.0-13.0); NEUTROPHILS % (AUTO) 87.2 % (40.0-77.0); PLATELET COUNT (AUTO) 177 K/uL (130-400); RED CELL DISTRIBUTION WIDTH 13.1 % (11.0-15.5); WHITE BLOOD COUNT (AUTO) 8.9 K/uL (4.8-10.8)
[2020-04-27] MEDS: FAMOTIDINE/PF 20 MG/2 ML VIAL IV SCH ×2 (08:28→21:24)
[2020-04-27] MEDS: ASCORBIC ACID 500 MG TAB PO SCH (08:28)
[2020-04-27] MEDS: ZINC SULFATE 220 CAPSULE PO SCH (08:28)
[2020-04-27] MEDS: APIXABAN 2.5 MG TABLET PO SCH ×2 (08:29→21:24)
[2020-04-27] MEDS: MIDODRINE HCL 5 MG TABLET PO SCH ×3 (08:29→21:25)
[2020-04-27] MEDS: DEXAMETHASONE 4 MG TAB PO SCH ×2 (08:32→21:26)
[2020-04-27 08:37] LABS: CARBON DIOXIDE 26 mmol/L (21-32); CHLORIDE 104 mmol/L (101-111); CREATININE 1.4 mg/dL (0.5-1.5); GLOMERULAR FILTR. RATE CALC 43 mL/min (>60); GLUCOSE,RANDOM 108 mg/dL (70-105); LACTATE DEHYDROGENASE 191 U/L (81-234); POTASSIUM 4.8 mmol/L (3.5-5.1); SODIUM SERUM 138 mmol/L (136-145); UREA NITROGEN, BLOOD 34 mg/dL (7-18)
--- NOTE | 2020-04-27 13:02 | NUR ---
DR. HILL PER DR. HILL NO PACEMAKER AT THIS TIME, WILL WAIT TO SEE IF SHE GETS BETTER FROM COVID. IF, HR IS NOT BETTER THEN POSS PACEMAKER. PT WILL STAY PER DR. HILL TO MONITOR HR MAKING SURE SHE STABLE.
[2020-04-27] MEDS: HYDROCODONE/ACETAMINOPHEN 5/325 MG TAB PO PRN (21:25)
[2020-04-28] VITALS (7 sets, daily range): BP systolic 80–109; BP diastolic 42–73
[2020-04-28] MEDS: ALBUTEROL INHALER 90MCG/INH IH SCH ×5 (02:00→17:30)
[2020-04-28 06:26] LABS: BASOPHILS % (AUTO) 0.1 % (0.0-5.0); HEMATOCRIT 38.2 % (36-48); LYMPHOCYTES % (AUTO) 6.6 % (21.0-51.0); MEAN CORPUSCULAR HGB CONC 31.7 g/dL (32.0-36.0); MEAN CORPUSCULAR VOLUME 85.3 fL (79-99); MONOCYTES % (AUTO) 4.8 % (3.0-13.0); NEUTROPHILS % (AUTO) 87.7 % (40.0-77.0); PLATELET COUNT (AUTO) 189 K/uL (130-400); RED BLOOD CELL COUNT(AUTO) 4.48 MIL/uL (4.00-5.50); RED CELL DISTRIBUTION WIDTH 13.1 % (11.0-15.5); WHITE BLOOD COUNT (AUTO) 11.7 K/uL (4.8-10.8)
[2020-04-28 06:57] LABS: CARBON DIOXIDE 23 mmol/L (21-32); CHLORIDE 103 mmol/L (101-111); CREATININE 1.6 mg/dL (0.5-1.5); GLOMERULAR FILTR. RATE CALC 37 mL/min (>60); GLUCOSE,RANDOM 133 mg/dL (70-105); POTASSIUM 4.1 mmol/L (3.5-5.1); SODIUM SERUM 138 mmol/L (136-145); UREA NITROGEN, BLOOD 41 mg/dL (7-18)
[2020-04-28] MEDS: APIXABAN 2.5 MG TABLET PO SCH ×2 (08:06→20:59)
[2020-04-28] MEDS: ASCORBIC ACID 500 MG TAB PO SCH (08:06)
[2020-04-28] MEDS: DEXAMETHASONE 4 MG TAB PO SCH ×2 (08:07→20:59)
[2020-04-28] MEDS: ZINC SULFATE 220 CAPSULE PO SCH (08:07)
[2020-04-28] MEDS: FAMOTIDINE/PF 20 MG/2 ML VIAL IV SCH ×2 (08:07→20:59)
[2020-04-28] MEDS: MIDODRINE HCL 5 MG TABLET PO SCH ×3 (08:42→20:58)
[2020-04-28] MEDS ORDERED: BENZONATATE 100 MG CAPSULE PO PRN (08:45)
[2020-04-28] MEDS: ACETYLCYSTEINE 600 MG CAPSULE PO SCH ×2 (08:47→20:58)
--- NOTE | 2020-04-28 16:31 | NUR ---
CM/DID NOT QUALIFY FOR HOME O2 PER RT REPORT FOR HOME OXYGEN EVALUATION, PATIENT DID NOT QUALIFY FOR HOME OXYGEN. PRIMARY NURSE, NYDIA DOAN, AWARE. ALSO, DR. DAVID AWARE OF NO NEED FOR HOME O2.
--- NOTE | 2020-04-28 16:39 | NUR ---
DR. LUCY AYALA MADE AWARE OF PT O2, SHE WALKED AND SPO2 94% RM AIR. PER DR. AYALA WANTS TO KEEP HER ONE MORE DAY D/T HYPOTENSIVE.
--- NOTE | 2020-04-28 23:58 | NUR ---
ROUNDS PT AWAKE IN BED ON PHONE. NO DISTRESS NOTED. PT ON RA, ELIZABETH WELL. CALL LIGHT WITHIN REACH. WILL CONTINUE TO MONITOR.
[2020-04-29 03:34] VITALS: BP 102/55
[2020-04-29 04:52] LABS: BASOPHILS % (AUTO) 0.1 % (0.0-5.0); EOSINOPHILS % (AUTO) 0.2 % (0.0-8.0); HEMATOCRIT 34.7 % (36-48); LYMPHOCYTES % (AUTO) 7.3 % (21.0-51.0); MEAN CORPUSCULAR HEMOGLOBIN 27.2 pg (27.0-33.0); MONOCYTES % (AUTO) 6.8 % (3.0-13.0); NEUTROPHILS % (AUTO) 84.6 % (40.0-77.0); PLATELET COUNT (AUTO) 174 K/uL (130-400); RED BLOOD CELL COUNT(AUTO) 4.08 MIL/uL (4.00-5.50); RED CELL DISTRIBUTION WIDTH 13.3 % (11.0-15.5); WHITE BLOOD COUNT (AUTO) 12.2 K/uL (4.8-10.8)
[2020-04-29 05:14] LABS: ALANINE AMINOTRANSFERASE 69 U/L (12-78); ALBUMIN 2.7 g/dL (3.5-5.0); ASPARTATE AMINOTRANSFERASE 16 U/L (10-37); BILIRUBIN,TOTAL 0.4 mg/dL (0.2-1.0); CARBON DIOXIDE 25 mmol/L (21-32); CHLORIDE 103 mmol/L (101-111); CREATININE 1.5 mg/dL (0.5-1.5); GLOMERULAR FILTR. RATE CALC 40 mL/min (>60); GLUCOSE,RANDOM 110 mg/dL (70-105); LACTATE DEHYDROGENASE 142 U/L (81-234); SODIUM SERUM 135 mmol/L (136-145); TOTAL PROTEIN, SERUM 6.3 g/dL (6.0-8.3); UREA NITROGEN, BLOOD 46 mg/dL (7-18)
[2020-04-29] MEDS: ALBUTEROL INHALER 90MCG/INH IH SCH ×2 (06:00→10:23)
[2020-04-29 08:00] VITALS: BP 93/52
[2020-04-29] MEDS: DEXAMETHASONE 4 MG TAB PO SCH (08:19)
[2020-04-29] MEDS: ASCORBIC ACID 500 MG TAB PO SCH (08:19)
[2020-04-29] MEDS: ZINC SULFATE 220 CAPSULE PO SCH (08:19)
[2020-04-29] MEDS: APIXABAN 2.5 MG TABLET PO SCH (08:20)
[2020-04-29] MEDS: FAMOTIDINE/PF 20 MG/2 ML VIAL IV SCH (08:20)
[2020-04-29] MEDS: ACETYLCYSTEINE 600 MG CAPSULE PO SCH (08:20)
[2020-04-29] MEDS: MIDODRINE HCL 5 MG TABLET PO SCH (08:20)
[2020-04-29] MEDS ORDERED: APIX2.5T PO (08:29)
[2020-04-29] MEDS ORDERED: DEXA6TAB PO (08:29)
--- NOTE | 2020-04-29 11:00 | NUR ---
CM NOTE/ELIQUIS PER MD, WILL DC HOME WITH ELIQUIS RX. ELIQUIS COUPON GIVEN TO NURSE TO GIVE TO PATIENT TO USE AT PHARMACY OF CHOICE.
[2020-04-29 13:24] VITALS: BP 96/62
--- NOTE | 2020-04-29 13:56 | NUR ---
PATIENT DISCHARGE PATIENT DISCHARGE, IV DISCONTINUED, CATHLON INTACT, BLEEDING CONTROLLED, PATIENT TOLERATED WITHOUT INCIDENT.
== END 2020-04-29 14:30 | disposition home or self-care (01) | DRG 137 ==
LOC: EDH 19:44 → EDHIP 19:45 → EDH 21:18 → EDHIP 04-20 09:35 → 2AH 04-20 19:18 → 2CV 04-24 10:44 → 4AH 04-24 13:52
PROVIDERS: ADMIT Hospitalist; ATTEND Hospitalist
DX: U07.1 COVID-19 (principal); J96.01 Acute respiratory failure with hypoxia; J12.89 Other viral pneumonia; N17.9 Acute kidney failure, unspecified; E66.01 Morbid (severe) obesity due to excess calories; R00.1 Bradycardia, unspecified; Z68.37 Body mass index [BMI] 37.0-37.9, adult; E11.22 Type 2 diabetes mellitus with diabetic chronic kidney disease; I12.9 Hypertensive chronic kidney disease with stage 1 through stage 4 chronic kidney disease, or unspecified chronic kidney disease; N18.3 Chronic kidney disease, stage 3 (moderate); R80.9 Proteinuria, unspecified; R78.81 Bacteremia
CPT/HCPCS: 36415; 36600; 71045; 80048; 80053; 81001; 82533; 82550; 82570; 82728; 82803; 82948; 83605; 83615; 83735; 83874; 83880; 84100; 84145; 84156; 84443; 84484; 85025; 85378; 85610; 85730; 86140; 87040; 87077; 87088; 87186; 93005; 93970; 94760; 97039; 99291; G0378; J1650; J1940; J2020; J2405; J2543; J2920; J2930; J3490; J7030; J7040; J8540; U0003